=== PATIENT | male | born 1970 | race Caucasian/White ===

== ENCOUNTER 2021-05-14 22:39 | Emergency (ER) | payer BC ==
[2021-05-14 22:50] VITALS: BP 147/96; PULSE 87; TEMP 97.8; BMI 24.5
== END 2021-05-14 23:46 | disposition home or self-care (01) ==
LOC: FER 22:39
DX: M79.661 Pain in right lower leg (principal)
CPT/HCPCS: 93971-TC; 99283-25

== ENCOUNTER 2024-09-19 12:31 | Emergency (ER) | payer BC, OTHER ==
[2024-09-19 12:38] VITALS: BP 127/103; PULSE 86; RESP 18; TEMP 97.3; BMI 24.5
[2024-09-19] MEDS ORDERED: MAG HYDROX/AL HYDROX/SIMETH 30 ML UNIT-DOSE CUP ONE (14:11)
[2024-09-19] MEDS ORDERED: ACETAMINOPHEN INJECTION 100 ML ONE (14:11)
[2024-09-19] MEDS: ACETAMINOPHEN 1000 MG/100 ML BAG IVPB ONE (14:18)
[2024-09-19] MEDS: MAG HYDROX/AL HYDROX/SIMETH 30 ML UNIT-DOSE CUP PO ONE (14:18)
[2024-09-19 14:19] LABS: ABSOLUTE IMMATURE GRANULOCYTES 0.02 x10^3/uL (0.0-0.031); BASOPHILS # 0.04 x10^3/uL (0.01-0.08); EOSINOPHIL % 1.1 % (0.8-7.0); EOSINOPHILS # 0.07 x10^3/uL (0.04-0.54); MCHC 33.3 g/dl (32.3-36.5); MEAN CELL VOLUME 88.2 fl (79.0-92.2); MEAN PLT VOLUME 10.1 fl (9.4-12.4); MONOCYTE # 0.46 x10^3/uL (0.30-0.82); PLATELET COUNT 242 x10^3/uL (163-337); RDW 12.8 % (12.2-16.1)
[2024-09-19] MEDS: SODIUM CHLORIDE 0.9% 500 ML INFUS.BAG IV ONE (14:19)
[2024-09-19 14:26] LABS: INR 1.16 (0.83-1.09); PROTHROMBIN TIME (PATIENT) 12.6 SEC (9.7-13.0)
[2024-09-19 14:29] LABS: ACTIVATED PTT 29.3 SECONDS (25.2-36.5)
[2024-09-19 14:40] LABS: POTASSIUM 4.1 mmol/L (3.5-5.1)
[2024-09-19 14:42] LABS: ALBUMIN 4.5 g/dl (3.4-5.0); BLOOD UREA NITROGEN 17.2 mg/dL (7-18); CALCIUM 9.7 mg/dL (8.5-10.1); MAGNESIUM 2.2 mg/dL (1.8-2.4)
[2024-09-19 14:45] LABS: CREATININE 1.2 mg/dL (0.55-1.3)
[2024-09-19 14:47] LABS: BILIRUBIN,TOTAL 2.1 mg/dL (0.2-1); TOT PROT 7.8 g/dl (6.4-8.2)
[2024-09-19 17:57] LABS: PH,URINE 7.5 (5.0-8.0); URINE APPEARANCE CLEAR; URINE BILIRUBIN NEGATIVE (NEGATIVE); URINE COLOR YELLOW; URINE GLUCOSE (UA) NEGATIVE (NEGATIVE); URINE KETONE NEGATIVE (NEGATIVE); URINE LEUK ESTERASE NEGATIVE (NEGATIVE); URINE NITRITE NEGATIVE (NEGATIVE); URINE PROTEIN NEGATIVE (NEGATIVE); URINE UROBILINOGEN 0.2 mg/dL (0.2-1.0)
== END 2024-09-19 17:52 | disposition home or self-care (01) ==
LOC: JER 12:31
PROC: 3E033NZ Introduction of Analgesics, Hypnotics, Sedatives into Peripheral Vein, Percutaneous Approach (ICD-10-PCS; principal; 2024-09-19)
DX: R10.32 Left lower quadrant pain (principal)
CPT/HCPCS: 36415; 74177-TC; 80053; 81003; 83690; 83735; 85025; 85610; 85730; 86850; 86900; 86901; 99285-25; Q9967

== ENCOUNTER 2024-10-12 07:35 | Day surgery (SDC) | payer OTHER ==
[2024-10-11 12:41] VITALS: BMI 24.3
[2024-10-12] MEDS ORDERED: SIMETHICONE 40 MG/0.6 ML BOTTLE ONE (14:26)
[2024-10-12 14:42] VITALS: TEMP 97.5
[2024-10-12 15:04] VITALS: RESP 17
[2024-10-12 15:56] VITALS: BP 118/76; PULSE 62
== END 2024-10-12 16:10 | disposition home or self-care (01) ==
LOC: JASU-ENDO 07:35
PROVIDERS: ATTEND Internal Medicine Gastroenterology
PROC: 0DB68ZX Excision of Stomach, Via Natural or Artificial Opening Endoscopic, Diagnostic (ICD-10-PCS; 2024-10-12)
PROC: 0DB78ZX Excision of Stomach, Pylorus, Via Natural or Artificial Opening Endoscopic, Diagnostic (ICD-10-PCS; 2024-10-12)
PROC: 0DBP8ZX Excision of Rectum, Via Natural or Artificial Opening Endoscopic, Diagnostic (ICD-10-PCS; principal; 2024-10-12 13:00)
DX: D12.8 Benign neoplasm of rectum (principal); K29.50 Unspecified chronic gastritis without bleeding; K31.7 Polyp of stomach and duodenum; K64.8 Other hemorrhoids; Z98.0 Intestinal bypass and anastomosis status
CPT/HCPCS: 88305-TC; 88342-TC